=== PATIENT | male | born 2000 | race Caucasian/White ===

== ENCOUNTER 2018-03-30 05:37 | Emergency (ER) | payer OTHER ==
[~2018-03-30] VITALS: Ht 188 cm; Wt 99.8 kg
--- NOTE | ~2018-03-30 | EKG ---
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
== END 2018-03-30 07:36 | disposition home or self-care (01) ==
LOC: ER 05:37
DX: M79.602 Pain in left arm (principal); M25.512 Pain in left shoulder